=== PATIENT | female | born 1960 ===

== ENCOUNTER 2018-12-26 22:59 | Observation (INO) ==
[2018-12-27] MEDS ORDERED: Ondansetron 4 MG/2 ML VIAL IVP PRN ×2 (02:39→10:46)
[2018-12-27] MEDS ORDERED: Ketorolac 15 MG/ML VIAL IVP PRN ×2 (02:39→10:46)
[2018-12-27] MEDS ORDERED: Naloxone 0.4 MG/ML INJ IVP PRN ×2 (02:39→10:46)
[2018-12-27] MEDS ORDERED: 0.9 % Sodium Chloride 1,000 ML IVC SCH ×2 (02:45→10:46)
[2018-12-27 04:53] LABS: Basophils # 0.1 K/mcL (0.0-0.2); Basophils % 0.5 %; Eosinophils # 0.2 K/mcL (0.0-0.6); Eosinophils % 1.8 %; Hematocrit 37.2 % (35.3-44.9); Hemoglobin 11.9 g/dL (11.5-15.4); Immature Granulocytes % 0.5 % (0-4); Lymphocytes % 40.6 %; Mean Corpuscular Hemoglobin 29.3 pg (28.0-33.3); Mean Corpuscular Volume 91.6 fL (83.0-100.0); Mean Platelet Volume 9.7 fL (9.4-12.4); Monocytes # 0.8 K/mcL (0.0-1.3); Monocytes % 7.7 %; Neutrophils # 4.9 K/mcL (1.6-8.9); Platelet Count 225 K/mcL (140-400); Red Blood Count 4.06 M/mcL (3.82-4.97); Red Cell Distribution Width 14.8 % (11.5-14.5); Segmented Neutrophils % 48.9 %; White Blood Count 9.9 K/mcL (4.3-11.1)
[2018-12-27] MEDS ORDERED: Dextrose Gel 15 GM/37.5 ML TUBE PO PRN ×4 (04:53→10:46)
[2018-12-27] MEDS ORDERED: D5% in Water 1,000 ML IVC PRN ×2 (04:53→10:46)
[2018-12-27] MEDS ORDERED: *HR* Dextrose 50 % in Water (Syg) 50 ML SYRINGE IVP PRN ×2 (04:53→10:46)
[2018-12-27 05:02] LABS: INR 1.2; Prothrombin Time 13.5 Seconds (9.4-12.1)
[2018-12-27 05:04] LABS: Activated Partial Thrombo Time 30.8 Seconds (26.0-36.0)
[2018-12-27 05:15] LABS: Alanine Aminotransferase 20 Units/L (7-52); Albumin 3.7 g/dL (3.5-5.7); Albumin/Globulin Ratio 1.3 (1.1-2.2); Alkaline Phosphatase 66 Units/L (34-104); Aspartate Amino Transferase 19 Units/L (13-39); BUN/Creatinine Ratio 17 (6-26); Bilirubin,Total 0.2 mg/dL (0.3-1.0); Blood Urea Nitrogen 13 mg/dL (6-20); Calcium 8.5 mg/dL (8.6-10.3); Carbon Dioxide 21 mEq/L (23-29); Chloride 109 mEq/L (98-107); Globulin 2.9 g/dL (2.4-3.5); Glucose 126 mg/dL (70-105); Magnesium 1.8 mg/dL (1.6-2.6); Osmolality,Calculated 288 (280-300); Potassium 3.5 mEq/L (3.5-5.1); Sodium 138 mEq/L (136-145); Total Protein 6.6 g/dL (6.4-8.9); eGFR For African Americans > 60 (> 60); eGFR For Non-African Americans > 60 (> 60)
[2018-12-27] MEDS ORDERED: Insulin LISPRO 300 UNITS/3 ML VIAL SQ SCH ×4 (06:00→21:00)
[2018-12-27] MEDS ORDERED: *HR* FentaNYL (PF) 100 MCG/2 ML VIAL ONE (08:23)
[2018-12-27] MEDS ORDERED: *HR* Midazolam HCl 2 MG/2 ML VIAL ONE (08:23)
[2018-12-27] MEDS ORDERED: Ondansetron 4 MG/2 ML VIAL ONE (08:23)
[2018-12-27] MEDS ORDERED: Dexamethasone 4 MG/ML VIAL ONE (08:23)
[2018-12-27] MEDS ORDERED: *HR* Propofol 200 MG/20 ML VIAL IVP ONE (08:23)
[2018-12-27] MEDS ORDERED: Lidocaine -MPF 2% 2 ML VIAL ONE (08:23)
[2018-12-27] MEDS ORDERED: *HR* PHENYLEPHRINE 1,000 MCG/10 ML SYRINGE IVP ONE (08:23)
[2018-12-27] MEDS ORDERED: Lidocaine HCL 4 ML Topical Solution (Laryng-O-Jet Kit Sterile Pak) TP ONE (08:23)
[2018-12-27] MEDS ORDERED: Isovue-300 50ML VIAL ONE (08:25)
[2018-12-27] MEDS ORDERED: *HR* Promethazine 25 MG/ML VIAL IVP PRN (08:39)
[2018-12-27] MEDS ORDERED: Ondansetron 4 MG/2 ML VIAL IVP ONE (08:39)
[2018-12-27] MEDS ORDERED: *HR* HYDROmorphone (PF) 1 MG/ML SYRINGE IVP PRN (08:39)
[2018-12-27] MEDS ORDERED: Albuterol 2.5 MG/3 ML NEBULIZER IH PRN (08:39)
[2018-12-27] MEDS ORDERED: *HR* OxyCODONE Immed Rel 5 MG TABLET PO PRN (08:39)
[2018-12-27] MEDS ORDERED: levoFLOXacin 500 MG/100 ML 500 MG/100 ML BAG IVPB ONE (08:57)
[2018-12-27] MEDS ORDERED: *HR* Belladonna Alkaloids/Opium 30 MG RECTAL SUPPOSITORY RC PRN (10:46)
[2018-12-27 14:55] VITALS: BP 133/89
== END 2018-12-27 15:26 | disposition home or self-care (01) ==
LOC: 3ANU → SUATTDRO 12-27 01:52
PROVIDERS: ADMIT Internal Medicine; ATTEND Student in an Organized Health Care Education/Training Program